=== PATIENT | male | born 1980 | race Caucasian/White ===

== ENCOUNTER 2020-10-22 22:52 | Emergency (ER) | payer BC, MEDICAID, SELFPAY ==
[2020-10-22 23:20] VITALS: BP 170/93; PULSE 78; RESP 16; TEMP 36.6; O2SAT 99; BMI 51.7
--- NOTE | 2020-10-23 00:03 | XRR_ITS ---
PROCEDURE INFORMATION: Exam: XR Right Knee Exam date and time: 10/23/2020 12:11 AM Age: 40 years old Clinical indication: Injury or trauma; Blunt trauma; Right; Prior surgery; Surgery date: 6+ months; Surgery type: Scope; Patient HX: C/O R knee pain after fall from standing TECHNIQUE: Imaging protocol: XR Right knee. Views: 3 views. COMPARISON: No relevant prior studies available. FINDINGS: Bones/joints: No acute fractures. Unremarkable joint alignment. Severe joint space loss. Bulky marginal osteophytic spurring in each compartment. Trace joint effusion. Soft tissues: Unremarkable. XR/XR knee RT 3V* [id number] IMPRESSION: Negative for fracture.
--- NOTE | 2020-10-23 00:35 | ED_ITS ---
HPI - Extremity Problem General: Chief complaint: Extremity Injury, Lower Stated complaint: fell, knee pain Time Seen by Provider: 10/23/20 00:18 History of Present Illness: HPI Narrative: Patient comes in for injury to the right knee. Patient reports that he has severe degenerative disease in the knee. Patient was trying to lose weight and had been walking out in the yard when he twisted his knee. Patient reports several snaps and pops. Patient appears well. Patient reports pain with weightbearing. Incident occurred about 2 hours prior to arrival. Review of Systems General: Reports: 10 or more systems reviewed and unremarkable except in HPI and below Musc: Reports: other (Right knee injury.) Physical Exam Const: COMMON NORMALS: no acute distress and patient oriented x3 GENERAL APPEARANCE: cooperative HENMT: COMMON NORMALS: normocephalic, TM's normal bilaterally and Normal external nose present HEAD & SCALP: normal to inspection and normocephalic NOSE: Normal external nose present TYMPANIC MEMBRANE: TM's normal bilaterally MOUTH: Normal oral and palatal mucosa present THROAT: posterior oropharynx normal Eye: GENERAL EYE: appearance normal, both eyes and all related structures Neck/C-Spine: COMMON NORMALS: full ROM Lymph: LYMPHATIC: no lymphadenopathy noted Chest: COMMONS NORMALS: normal inspection of the chest Resp: COMMON NORMALS: normal respiratory effort EFFORT & INSPECTION: Yes able to speak in complete sentences Cardio: COMMON NORMALS: regular rate and regular rhythm RATE: regular rate RHYTHM: regular rhythm GI: COMMON NORMALS: non-tender : COMMON NORMALS: Yes no CVA tenderness BLADDER/KIDNEY EXAM: Yes no CVA tenderness Back/Pelvis: COMMON NORMALS: no CVA tenderness and thoracic and lumbar spine normal to inspection Extremity: COMMON NORMALS: normal to inspection Neuro: COMMON NORMALS: patient oriented x3 and moves all extremities Psych: COMMON NORMALS: mental status grossly normal and cooperative Skin: COMMON NORMALS: no rashes or lesions noted GENERAL SKIN EXAM: no rashes or lesions noted Course Vital Signs: Vital signs: Vital Signs Temperature 97.8 F 10/22/20 23:20 Pulse Rate 78 10/22/20 23:20 Respiratory Rate 16 10/22/20 23:20 Blood Pressure 170/93 10/22/20 23:20 Pulse Oximetry 99 10/22/20 23:20 MDM - Extremity (Nontraumatic) MDM Narrative: Medical decision making narrative: Patient comes in for evaluation of the right knee after an injury today. On exam patient has tenderness of the joint line of the knee. There is some mild swelling to the knee area. No redness is noted. Patient is able to lift knee off the bed without difficulty. Patient does have a history of osteoarthritis. Differential diagnosis includes but not limited to sprain, internal derangement of the knee, meniscal versus cartilage injury, fracture. X-ray noted no acute fracture. X-ray did note significant degenerative joint disease. Reviewed exam with patient with recommendations for treatment and follow-up. We will give patient short supply of hydrocodone for his acute pain. Patient was recommended to use acetaminophen and ibuprofen otherwise for pain and swelling. Patient should use crutches until he can bear weight comfortably. Patient should follow-up with primary care for further instructions and orthopedic surgeon for further treatment. Discharge Plan Discharge Patient Disposition: Home Clinical Impression: Acute internal derangement of knee Qualifiers: Laterality: right Qualified Code(s): M23.91 - Unspecified internal derangement of right knee Knee osteoarthritis Qualifiers: Osteoarthritis type: unspecified Laterality: right Qualified Code(s): M17.11 - Unilateral primary osteoarthritis, right knee Condition: Stable Prescriptions: New hydrocodone-acetaminophen 5-325 mg tablet 1 tab PO Q6H PRN (Reason: pain (scale score 7-10)) Qty: 10 RF: 0 Discharge Orders: Discharge ED (Routine); Ordered 10/23/20 Ordered By: Darryl Fiore Discharge Diet: Usual diet Discharge Activity: Increase activity as tolerated Patient Instructions: Knee Pain (ED), Opioid Safety Activity Restrictions/Additional Instructions: Elastic bandage for comfort. Use crutches until you can bear weight comfortably on the knee. Use acetaminophen and ibuprofen to help control pain. Use hydrocodone for breakthrough pain. Follow-up with primary care or orthopedic surgeon for further evaluation and treatment. Coding Level of Care Code ED [place] [employer] [place] Supervisor for Katia Berman Exam Comprehensive
[2020-10-23] MEDS: HYDROcodone-acetaminophen 7.5-325 mg Tablet 1 TAB PO (00:46)
[2020-10-23 00:54] VITALS: BP 165/99; PULSE 88; RESP 17; O2SAT 99
== END 2020-10-23 00:55 | disposition home or self-care (01) ==
PROVIDERS: Emergency Provider Nurse Practitioner Family
DX: M23.91 Unspecified internal derangement of right knee (principal); M17.11 Unilateral primary osteoarthritis, right knee
CPT/HCPCS: 73562; 99283; E0114

== ENCOUNTER 2021-04-11 12:28 | Emergency (ER) | payer BC, MEDICAID, SELFPAY ==
--- NOTE | 2021-04-11 12:39 | XRR_ITS ---
PROCEDURE INFORMATION: Exam: XR Chest Exam date and time: 04/11/2021 12:39 PM Age: 40 years old Clinical indication: Angina pectoris. Chest pain. Numbness down left arm. TECHNIQUE: Imaging protocol: XR of the chest. Views: 1 view. COMPARISON: CT abdomen pelvis w con* [id number] 12/05/2017 12:58 PM FINDINGS: Lungs: No pulmonary consolidation. Pleural spaces: No pleural effusion.. No pneumothorax. Heart/Mediastinum: Cardiac silhouette appears prominent which may be exaggerated by AP technique. No gross evidence of pneumomediastinum. Bones/joints: No gross fracture. XR/XR chest 1V portable [id number] IMPRESSION: Cardiac silhouette appears prominent which may be exaggerated by AP technique. Radiation Dose CTDIVOL = (mGy): DLP = (mGy-cm)
--- NOTE | 2021-04-11 12:39 | ECG_ITS ---
[facility] Test Date: 2021-04-11 Pat Name: Alberto Jimenez Department: Room: Gender: Male Patient Assessment Coordinator: : 1980 Requested By: Sandra Fulton Order Number: [id number] Elenita MD: Aaron Campos M.D. Measurements Intervals [place] Rate: 65 P: 33 HI: 197 QRS: -22 QRSD: 108 T: -6 QT: 388 QTc: 406 Interpretive Statements SINUS RHYTHM BORDERLINE LEFT AXIS DEVIATION [QRS AXIS < -20] INCOMPLETE RIGHT BUNDLE BRANCH BLOCK [90+ ms QRS DURATION, TERMINAL R IN V1/V2, 40+ ms S IN I/aVL/V4/V5/V6] Compared to ECG 08/11/2017 04:32:29 No significant changes Electronically Signed On 04-12-2021 17:40:06 MATERIAL LISTER by Aaron Campos M.D. [id number]
[2021-04-11 12:52] VITALS: BP 126/87; PULSE 69; RESP 14; TEMP 37; O2SAT 100; BMI 51.3
[2021-04-11 13:49] VITALS: BP 125/72; PULSE 69; RESP 20; O2SAT 97
[2021-04-11 13:55] LABS: Basophils # 0.1 10^3/uL (0.0-0.1); Basophils % 0.5 %; Eosinophils # 0.1 10^3/uL (0.0-0.8); Eosinophils % 0.4 %; Hematocrit 38.5 % (42.0-52.0); Hemoglobin 13.7 g/dL (11.7-16.6); Lymphocytes % 22.2 %; Mean Corpuscular HGB Conc 35.6 g/dL (30.0-36.0); Mean Corpuscular Hemoglobin 29.3 pg (28.0-34.0); Mean Corpuscular Volume 82.4 fl (80-94); Mean Platelet Volume 10.8 fL (7.4-10.4); Monocytes # 0.6 10^3/uL (0.2-0.9); Monocytes % 4.7 %; Neutrophils # 9.81 10^3/uL (1.8-7.7); Neutrophils % 71.8 %; Nucleated Red Blood Cells % 0 %; Platelet Count 312 10^3/cmm (130-400); Red Blood Count 4.67 10^6/uL (4.1-5.3); Red Cell Distribution Width 13.3 % (12.1-15.1); White Blood Count 13.7 10^3/uL (4.0-10.0)
[2021-04-11 14:13] LABS: D Dimer <= 0.27 ug/mIFEU (0-0.59)
[2021-04-11 14:15] LABS: Blood Urea Nitrogen 11 mg/dL (6-20); Calcium 8.5 mg/dL (8.5-10.5); Carbon Dioxide 23 mmol/L (22-29); Chloride 102 mmol/L (98-107); Glomerular Filtration Rate 148.5 mL/min (90-130); Glucose 106 mg/dL (65-115); Osmolality Calculated 282 mOsm/kg (285-295); Sodium 136 mmol/L (136-145)
[2021-04-11 14:27] LABS: Troponin(5th) Baseline 6 ng/L (0-15)
--- NOTE | 2021-04-11 14:39 | ECG_ITS ---
[facility] Test Date: 2021-04-11 Pat Name: Alberto Jimenez Department: Room: Gender: Male Retail Team Leader: : 1980 Requested By: Sandra Fulton Order Number: [id number] Kwong MD: Aaron Campos M.D. Measurements Intervals [place] Rate: 63 P: 19 KS: 198 QRS: -10 QRSD: 120 T: 12 QT: 409 QTc: 420 Interpretive Statements SINUS RHYTHM MODERATE INTRAVENTRICULAR CONDUCTION DELAY [110+ ms QRS DURATION] NONSPECIFIC ST ELEVATION [0.05+ mV ST ELEVATION] Compared to ECG 04/11/2021 13:11:24 Intraventricular conduction delay now present ST (T wave) deviation now present Incomplete right bundle-branch block no longer present Electronically Signed On 04-12-2021 17:45:05 WIRE PHOTO OPERATOR by Aaron Campos M.D. [id number]
[2021-04-11 15:06] VITALS: BP 131/75; PULSE 65; RESP 14; O2SAT 98
--- NOTE | 2021-04-11 15:46 | W.ED.GENADLT ---
HPI - General Adult General: Chief complaint: Chest Pain Stated complaint: CHEST PAIN/ L HAND NUMBNESS Time Seen by Provider: 04/11/21 12:39 History of Present Illness: HPI narrative: CC: Chest Pain HPI: This is a [40] yo patient hx of obesity and prediates presenting to the ED complaining of intermittent substernal chest pressure x 4 days WITHOUT radiation to the back or shoulders. Patient reports tingling in fingers and feeling clammy. No associated with shortness of breath, chest pain or dyspnea on exertion. Pain is not tearing in nature and does not radiate to the back. Pain not associated with vomiting or PO intake. Denies any recent sympathomimetic drug use. Patient denies any cough. Denies palpitations, dysphagia, diaphoresis, radiation of pain to bilateral arms, jaw. Denies F/N/V/D. Patient denies any recent immobility, surgery, unilateral leg swelling, or prior PE. Patient denies any orthopnea. Onset: 4 days ago Duration: ongoing for the last 4 days Location: home Severity: mild/moderate Review of Systems Narrative: Constitutional: No fever, no chills. HEENT: No vision changes, no sore throat. CV: +chest pain, no palpitations. PULM: No cough, No dyspnea. GI: No abdominal pain, no N/V/D. : No dysuria, no frequency, no hematuria. MSKEL: No arthralgias, no edema. SKIN: No new rashes, no lesions. NEURO: No headache, no focal weakness. HEME: No easy bleeding or bruising. PSYCH: No change in mood or affect. Physical Exam Narrative: EXAM NARRATIVE: Head: Atraumatic, normocephalic Eyes: PERRL, EOMI, conjunctiva without injection ENT: Throat without erythema, lesions or exudate, MMM NECK: Supple, trachea midline, no JVD LUNGS: LCTA CV: RRR, S1,S2, no murmurs, rubs, gallops. 2+ peripheral pulses in UEs ABDOMEN: Soft, nontender, nondistended, BS x4, no rigidity, no guarding, no rebound EXTREMITY: Normal ROM, no pitting edema, no calf tenderness to palpation SKIN: No rash or erythema NEURO: Awake and alert. No focal motor deficits. PSYCH: Normal mood and affect. Course Vital Signs: Vital signs: Vital Signs Temperature 98.6 F 04/11/21 12:52 Pulse Rate 68 04/11/21 16:11 Respiratory Rate 19 H 04/11/21 16:11 Blood Pressure 112/63 04/11/21 16:11 Pulse Oximetry 98 04/11/21 16:11 MDM - General Adult MDM Narrative: Medical decision making narrative: [40]yo patient w/ hx of prediabetes, marijuana use, and obesity presenting to the ED with evaluation of new pressure like pain x 4 days. HDS, pulse 2+ radially bilaterally, no signs of fluid overload, AAOx3, neuro exam intact. Given History and Exam today I have no suspicion for ACS, Pneumothorax, Pneumonia, Pulmonary Embolus, Tamponade, Aortic Dissection or other emergent problems as a cause for this presentation. Workup: ECG, CXR, CBC, BMP, Troponin Findings: ECG: No overt evidence of STEMI, hyperacute T waves, localizable STD or T wave inversions. No evidence of Brugada?s sign, delta wave, epsilon wave, significantly prolonged QTc, or malignant arrhythmia. No Q waves. Other Labs unremarkable for emergent problems. CXR: Without PTX, PNA, or widened mediastinum Last Stress Test: never Last Heart Catheterization: never HEART Score: 3 (story - 1, age - 1, risk factors 1) Dimer negative [3:48pm] On reassessment, the patient is HDS, no complaints of persistent chest pain in the ED after evaluation. ECG is non-ischemic. Workup today is unremarkable. Doubt ACS/PE or other emergent causes of chest pain. I performed a shared decision-making with the patient regarding admission versus discharge given the nature of his chest pain. Although his workup is negative including troponin x 2 today, I explained to him that he may still have a cardiac event given the light-headedness and pressure like sensation he has. At this time, patient elects to follow up with a solution design engineer outpatient for further evaluation and prefers to be discharged today in order to see his children. Because of the holiday schedule, it is unclear if he will be able to get a stress test even if admitted today. I have discussed the risks of leaving the hospital today which include serious risks including acute myocardial infarction and even which is unlikely but cannot rule out with the workup today. Patient verbalizes understandings of all the risks and still elect for outpatient stress test. Patient is given cardiology followup. Patient is aware that he has a stress test next week. I have called the watch caser to arrange for the stress test. I have given patient strict return precaution for any worsening pain lightheadedness, dizziness before he is getting stressed as he may still be at risk for having a cardiac event. Patient verbalizes everything discussed today. I have given patient follow up with our watch caser to be seen by our outpatient Cardiology for nuclear stress test. Patient aware of a call from our watch caser to schedule for appointment(s) and verbalizes understanding of the importance of following up. Doubt ACS/PE or other emergent causes of chest pain. No suspicion for aortic dissection given no widened mediastinum, 2+ upper extremity pulses, or tearing pain. No suspicion for PE given no pleuritic chest pain, recent immobilization or surgery hemoptysis, or other VTE risk factors. EKG is non-ischemic. XR normal. Rx: Tylenol 500mg Q6hrs x 5 days Disposition: Discharge. Strict return precautions discussed with the patient with full understanding. Advised patient to follow up promptly with a primary care provider in 24-48 hrs if the patient has persistent symptoms. Given return instructions for any crushing/tearing chest pain, focal weakness, syncope or any new or concerning issues. Lab Data: Labs: Lab Results 04/11/21 04/11/21 04/11/21 13:45 13:45 13:45 WBC 13.7 10^3/uL H 10 ^3/uL (4.0-10.0) RBC 4.67 10^6/uL 10^6 /uL (4.1-5.3) Hgb 13.7 g/dL g/dL (11.7-16.6) Hct 38.5 % L % (42.0-52.0) MCV 82.4 fl fl (80-94) MCH 29.3 pg pg (28.0-34.0) MCHC 35.6 g/dL g/dL (30.0-36.0) RDW 13.3 % % (12.1-15.1) Plt Count 312 10^3/cmm 10^3 /cmm (130-400) MPV 10.8 fL H fL (7.4-10.4) Neut % (Auto) 71.8 % % Lymph % (Auto) 22.2 % % [place] % (Auto) 4.7 % % Eos % (Auto) 0.4 % % Baso % (Auto) 0.5 % % Neut # (Auto) 9.81 10^3/uL H 10 ^3/uL (1.8-7.7) Lymph # (Auto) 3.0 10^3/uL 10^3/ uL (0.8-4.8) [place] # (Auto) 0.6 10^3/uL 10^3/ uL (0.2-0.9) Eos # (Auto) 0.1 10^3/uL 10^3/ uL (0.0-0.8) Baso # (Auto) 0.1 10^3/uL 10^3/ uL (0.0-0.1) Nucleated RBC % (a uto) 0 % % Nucleated RBCs # 0.0 /100WBC /100W BC D-Dimer Sodium 136 mmol/L mmol/L (136-145) Potassium 4.0 mmol/L mmol/L (3.5-5.1) Chloride 102 mmol/L mmol/L (98-107) Carbon Dioxide 23 mmol/L mmol/L (22-29) Anion Gap 15.0 (5-19) BUN 11 mg/dL mg/dL (6-20) Creatinine 0.6 mg/dL L mg/dL (0.7-1.2) GFR Calculation 148.5 mL/min H mL /min (90-130) Glucose 106 mg/dL mg/dL (65-115) Calculated Osmolal ity 282 mOsm/kg L mOs m/kg (285-295) Calcium 8.5 mg/dL mg/dL (8.5-10.5) Troponin T Baselin e 6 ng/L ng/L (0-15) Troponin T 120 Min [place] Delta Troponin T 04/11/21 04/11/21 13:45 15:39 WBC RBC Hgb Hct MCV MCH MCHC RDW Plt Count MPV Neut % (Auto) Lymph % (Auto) [place] % (Auto) Eos % (Auto) Baso % (Auto) Neut # (Auto) Lymph # (Auto) [place] # (Auto) Eos # (Auto) Baso # (Auto) Nucleated RBC % (a uto) Nucleated RBCs # D-Dimer <= 0.27 ug/mIFEU ug/mIFEU (0-0.59) Sodium Potassium Chloride Carbon Dioxide Anion Gap BUN Creatinine GFR Calculation Glucose Calculated Osmolal ity Calcium Troponin T Baselin e Troponin T 120 Min [place] 6.00 ng/L ng/L (0-15) Delta Troponin T 0 ABS# ABS# (0-10) Imaging Data^: Other Imaging: Radiologist's impression: [address] [id number] ReportSigned Patient: Liane Jimenez #: [id number]: 1980Acct#:[id number]/Sex: 40 / MADM Date: 04/11/21Loc: ERRoom/Bed:Attending Dr: Ordering Provider/Ordering MD: Sandra Fulton MD Date of Service: 04/11/21 Procedure(s): XR chest 1V portable [id number] Accession Number(s): [id number] Report Number: [id number] PROCEDURE INFORMATION: Exam: XR Chest Exam date and time: 04/11/2021 12:39 PM Age: 40 years old Clinical indication: Angina pectoris. Chest pain. Numbness down left arm. TECHNIQUE: Imaging protocol: XR of the chest. Views: 1 view. COMPARISON: CT abdomen pelvis w con* [id number] 12/05/2017 12:58 PM FINDINGS: Lungs: No pulmonary consolidation. Pleural spaces: No pleural effusion.. No pneumothorax. Heart/Mediastinum: Cardiac silhouette appears prominent which may be exaggerated by AP technique. No gross evidence of pneumomediastinum. Bones/joints: No gross fracture. XR/XR chest 1V portable [id number] IMPRESSION: Cardiac silhouette appears prominent which may be exaggerated by AP technique. Radiation Dose CTDIVOL = (mGy): DLP = (mGy-cm) Dictated By:Luis Acostaigned By:Luis Acostaigned Date/Time:04/11/21 1321DD/ 1239 Discharge Plan Discharge Patient Disposition: Home Clinical Impression: Chest pain Condition: Stable Prescriptions: New acetaminophen 500 mg tablet 500 mg PO Q6H PRN (Reason: pain) 5 Days Qty: 20 RF: 0 No Action hydrocodone-acetaminophen 5-325 mg tablet 1 tab PO Q6H PRN (Reason: pain (scale score 7-10)) Qty: 10 RF: 0 Discharge Orders: Discharge ED (Routine); Ordered 04/11/21 Ordered By: Sandra Fulton Discharge Diet: Advance as tolerated Discharge Activity: Resume usual activity Patient Instructions: Chest Pain (ED) Activity Restrictions/Additional Instructions: We have arranged you for an outpatient stress test for your heart. Please await to be contacted for the stress test. Come back to the emergency room if your chest pain worsens, have any fever or chills, worsening shortness of breath, worsening exertional lightheadedness, or any new or concerning complaints. Coding Level of Care Code ED Human Resources Assistant Manager for Katia Berman
[2021-04-11 16:11] VITALS: BP 112/63; PULSE 68; RESP 19; O2SAT 98
[2021-04-11 16:53] LABS: Troponin 5 2HR Delta 0 ABS# (0-10)
[2021-04-11 17:41] VITALS: BP 124/78; PULSE 67; RESP 19; TEMP 36.7; O2SAT 97
[2021-04-11 17:48] VITALS: BP 124/78; PULSE 67; RESP 19; TEMP 36.7; O2SAT 97
--- NOTE | 2021-04-11 18:16 | PC.NURSE ---
The patient left his discharge and prescription behind. This nurse called the patient and he did not want to return for them and asked that I shred the documents. This nurse placed the documents in the shredder per patient instruction.
--- NOTE | 2021-04-12 11:20 | DCPLANNER ---
traffic ii manager had message to schedule an outpatient stress test for patient, and then a follow up appointment with heart care. traffic ii manager faxed signed order to centralized scheduling, who will call patient with appointment information. After stress test is scheduled, disability case manager will schedule a follow up appointment for patient with heart care.
--- NOTE | 2021-05-01 08:00 | DCPLANNER ---
Patient had a follow up appointment scheduled for 04.20.21 for an outpatient stress test - patient did attend appointment.
--- NOTE | 2021-05-18 06:16 | DCPLANNER ---
Patient had a follow up appointment scheduled with Heart Care - patient did attend appointment.
== END 2021-04-11 17:50 | disposition home or self-care (01) ==
PROVIDERS: Emergency Provider Emergency Medicine
DX: R07.9 Chest pain, unspecified (principal)
CPT/HCPCS: 71045; 80048; 84484; 85025; 85378; 93005; 99284

== ENCOUNTER 2021-04-20 10:17 | Outpatient (CLI) | payer BC, MEDICAID, SELFPAY ==
--- NOTE | 2021-04-20 11:27 | NMCV_ITS ---
NM maryann perf SPECT r/s* [id number] Alberto Jimenez Age: 40 Gender: M : 1980 Exam Date: 04/20/2021 11:27 Ordering Phys: Sandra Fulton MD Technologist: ANA LILIA Kang Exam Location: [facility] Indications: CHEST PAIN STRESS TEST Please see separate stress test report in [facility] for full findings IMAGE PROTOCOL Rest/Stress 1 Lexiscan Day Radiopharmaceutical Dose (mCi) Administration Site Administered by Rest: Tc-99m 10.7 IV ANA LILIA Kang Sestamibi Stress:Tc-99m 33.0 IV ANA LILIA La Sestamibi Rest: 20-Apr-2021 60 Discovery 630 Stress: 20-Apr-2021 30 Discovery 630 0.4mg Lexiscan. Supine position only as patient was unable to lay prone. SPECT RESULTS Technical Quality: Excellent Raw Data Analysis: Normal Image Corrections: No attenuation or motion correction applied Summed Stress Score: 0 Summed Rest Score: 5 Summed Difference Score: 0 PERFUSION FINDINGS Small sized perfusion abnormality of mild severity of mid to apical anterior, apical inferior and apical wall on rest images with improved tracer uptake in stress images. This is suggestive of attenuation artifact. FUNCTIONAL RESULTS (calculated via Gated SPECT) Stress Image LV EF (%): 70 Stress EDV (mL):152 TID: 1.05 Stress ESV (mL):45 FUNCTIONAL FINDINGS: The left ventricle is normal in size. Transient Ischemia Dilatation of 1.1. There is normal left ventricular systolic function. The left ventricular ejection fraction is normal with a value of 70%. There is normal left ventricular wall thickening with no regional wall motion abnormality. IMPRESSIONS 1. Myocardial perfusion imaging is normal. Attenuation artifact noted in mid to apical inferior mills. 2. Overall left ventricular systolic function is normal without regional wall motion abnormalities. 3. The left ventricular ejection fraction is normal with a value of 70%. 4. No EKG changes with Lexiscan infusion. Refer to separate report for details. Nanda Deng MD (Electronically Signed) Final Date: 21 April 2021 13:34 S
--- NOTE | 2021-04-20 11:27 | ECG_ITS ---
[facility] Test Date: 2021-04-20 Pat Name: Alberto Jimenez Department: Room: Gender: Male Procurement Officer: Rosalie Brody : 1980 Requested By: Sandra Fulton Order Number: [id number] Elenita MD: Nanda Deng M.D. Interpretive Statements NAME OF STUDY: LEXISCAN SESTAMIBI STRESS TEST INDICATION: Chest Pain PROCEDURE: At the baseline, the blood pressure was 132/81 mmHg, oxygen saturation 98% with a heart rate of 55 bpm. The electrocardiogram showed sinus bradycardia, normal axis with nonspecific T wave inversion in lead III. The Lexiscan was infused over a period of 20 seconds. A total of 0.4 milligrams of Lexiscan was infused. The stress phase was continued for a total of 5 minutes. Heart rate at the end of the stress phase was 63 bpm, oxygen saturation 98% with a blood pressure of 126/85 mmHg. The EKG at the peak infusion revealed sinus rhythm with no significant ST-T wave changes. Sestamibi was injected 20 seconds after the Lexiscan infusion. Blood pressure at the end of the recovery phase was 136/85 mmHg, oxygen saturation 98% with a heart rate of 59 beats per minute. CONCLUSION: 1. No significant EKG changes with the LexiScan infusion. 2. No LexiScan induced chest pain or cardiac arrhythmia. 3. Normal blood pressure and heart rate response. 4. Sestamibi/sestamibi perfusion scan pending; see separate report. Electronically Signed On 04-21-2021 13:30:38 SUPERVISOR TELEVISION CHASSIS REPAIR by Nanda Deng M.D. [id number]
[2021-04-20 11:28] VITALS: BMI 49.1
[2021-04-20] MEDS: regadenoson 0.4 Mg/5 ml Syringe IVP (12:39)
[2021-04-20 12:51] VITALS: BP 136/85; PULSE 61
== END 2021-04-20 10:18 | disposition home or self-care (01) ==
LOC: RAD 10:21 → CDL 11:27
PROVIDERS: Visit Provider Emergency Medicine
DX: R07.9 Chest pain, unspecified (principal)
CPT/HCPCS: 78452; 93017; A9500; J2785